=== PATIENT | female | born 1965 | race Caucasian/White ===

== ENCOUNTER 2017-06-28 00:08 | Inpatient (IN) | payer OTHER ==
[~2017-06-28] VITALS: Ht 157.5 cm; Wt 68.3 kg
[~2017-06-28 00:08] MED LIST: DOCU100 PO; FAMO20 PO; HYDACE5 PO; IBUP800 PO; LEVFLO500 PO; Naprosyn500 MG PO; OXYACE5T PO; Percocet 5-3251 EACH PO; SULTRIDS PO; Veetids 500500 MG PO
[2017-06-28 00:44] LABS: BASOPHILS ABSOLUTE AUTO 0.07 K/mm3 (0.00-0.23); BASOPHILS PERCENT AUTO 1 % (0-2); EOSINOPHILS PERCENT AUTO 0 % (0-6); Hematocrit 42.8 % (33.0-51.0); IMMATURE GRAN ABSOLUTE AUTO 0.06 K/mm3 (0.00-0.10); IMMATURE GRAN PERCENT AUTO 0 % (0-1); LYMPHOCYTES ABSOLUTE AUTO 1.53 K/mm3 (0.84-5.20); LYMPHOCYTES PERCENT AUTO 11 % (21-46); MONOCYTES ABSOLUTE AUTO 0.76 K/mm3 (0.16-1.47); MONOCYTES PERCENT AUTO 5 % (4-13); Mean Corpuscular HGB 28.9 pg (26.0-34.0); Mean Corpuscular HGB Conc 32.7 g/dL (31.5-36.5); Mean Corpuscular Volume 88 fL (80-100); Mean Platelet Volume 9.5 fL (9.1-12.4); NEUTROPHILS ABSOLUTE AUTO 11.69 K/mm3 (1.96-9.15); NEUTROPHILS PERCENT AUTO 83 % (41-73); Platelet Count 276 K/mm3 (150-400); RDW Coefficient Variation 13.9 % (11.7-14.2); Red Blood Cell Count 4.84 M/mm3 (3.80-5.20); White Blood Cell Count 14.11 K/mm3 (4.00-11.30)
[2017-06-28 00:57] LABS: Alanine Aminotransfer (ALT/SGP 41 U/L (12-78); Albumin, Blood 3.6 g/dL (3.4-5.0); Albumin/Globulin Ratio 0.9 (0.8-1.8); Alk Phos 108 U/L (50-136); Anion Gap 9 mmol/L (6-16); Aspartate Aminotrans (AST/SGOT 37 U/L (12-37); Bilirubin, Total 1.9 mg/dL (0.1-1.0); Blood Urea Nitrogen 11 mg/dL (8-24); Bun/Creatinine Ratio 14.2 (12.0-20.0); CO2, Blood 26 mmol/L (21-32); Calcium, Blood 8.9 mg/dL (8.5-10.1); Chloride, Blood 98 mmol/L (98-108); Creatinine, Blood 0.78 mg/dL (0.40-1.00); Globulin, Blood 4.1 g/dL (2.2-4.0); Glomerular Filtration Rate >60 (60-); Glucose, Blood 122 mg/dL (70-99); Sodium, Blood 133 mmol/L (136-145); Total Protein, Blood 7.7 g/dL (6.4-8.2)
[2017-06-28 05:03] LABS: BASOPHILS ABSOLUTE AUTO 0.05 K/mm3 (0.00-0.23); BASOPHILS PERCENT AUTO 1 % (0-2); EOSINOPHILS ABSOLUTE AUTO 0.01 K/mm3 (0.00-0.68); EOSINOPHILS PERCENT AUTO 0 % (0-6); Hematocrit 36.2 % (33.0-51.0); Hemoglobin 11.7 g/dL (11.5-16.0); IMMATURE GRAN ABSOLUTE AUTO 0.04 K/mm3 (0.00-0.10); IMMATURE GRAN PERCENT AUTO 0 % (0-1); LYMPHOCYTES ABSOLUTE AUTO 1.64 K/mm3 (0.84-5.20); LYMPHOCYTES PERCENT AUTO 15 % (21-46); MONOCYTES ABSOLUTE AUTO 0.69 K/mm3 (0.16-1.47); MONOCYTES PERCENT AUTO 6 % (4-13); Mean Corpuscular HGB 28.7 pg (26.0-34.0); Mean Corpuscular HGB Conc 32.3 g/dL (31.5-36.5); Mean Corpuscular Volume 89 fL (80-100); Mean Platelet Volume 9.9 fL (9.1-12.4); NEUTROPHILS ABSOLUTE AUTO 8.63 K/mm3 (1.96-9.15); NEUTROPHILS PERCENT AUTO 78 % (41-73); Platelet Count 239 K/mm3 (150-400); RDW Coefficient Variation 13.9 % (11.7-14.2); RDW Standard Deviation 45.3 fL (35.1-46.3); Red Blood Cell Count 4.08 M/mm3 (3.80-5.20); White Blood Cell Count 11.06 K/mm3 (4.00-11.30)
[2017-06-28 05:26] LABS: Alanine Aminotransfer (ALT/SGP 30 U/L (12-78); Albumin, Blood 2.6 g/dL (3.4-5.0); Albumin/Globulin Ratio 0.8 (0.8-1.8); Alk Phos 81 U/L (50-136); Anion Gap 9 mmol/L (6-16); Aspartate Aminotrans (AST/SGOT 28 U/L (12-37); Bilirubin, Total 1.4 mg/dL (0.1-1.0); Blood Urea Nitrogen 10 mg/dL (8-24); Bun/Creatinine Ratio 14.5 (12.0-20.0); CO2, Blood 26 mmol/L (21-32); Calcium, Blood 7.8 mg/dL (8.5-10.1); Chloride, Blood 104 mmol/L (98-108); Creatinine, Blood 0.69 mg/dL (0.40-1.00); Globulin, Blood 3.4 g/dL (2.2-4.0); Glomerular Filtration Rate >60 (60-); Glucose, Blood 126 mg/dL (70-99); Potassium, Blood 3.4 mmol/L (3.5-5.5); Sodium, Blood 139 mmol/L (136-145)
[2017-06-28 08:45] LABS: U Amphetamine Screen DETECTED; U Methamphetamine Screen DETECTED
[2017-06-28 08:46] LABS: U Barbituate Screen Not Detected; U Benzodiazapine Screen Not Detected; U Buprenorphine Screen Not Detected; U Cannabinoids Screen Not Detected; U Cocaine Screen Not Detected; U Methadone Screen Not Detected; U Opiates Screen Not Detected; U Oxycodone Screen DETECTED; U Phencyclidine Screen Not Detected; U Propoxyphene Screen Not Detected
[2017-06-28 11:30] LABS: Source, Urine Clean Catch
[2017-06-28 11:45] LABS: Bilirubin, Urine Neg (Neg); Blood, Urine 1+ (Neg); Glucose Qualitative, Urine Neg (Neg); Ketones, Urine Neg (Neg); Leukocyte Esterase, Urine 2+ (Neg); Nitrite, Urine Neg (Neg); Protein, Urine 1+ (Neg); Specific Gravity, Urine 1.015 (1.003-1.022); Urobilinogen, Urine NORM (Normal)
[2017-06-28 11:46] LABS: Appearance, Urine Clear (Clear); Color, Urine Yellow (P-Yellow)
[2017-06-28 11:48] LABS: Bacteria Rare /hpf; Red Blood Cells, Urine 0-2 /hpf (0-2); Squamous Epithelial Cells Few /hpf (Few)
[2017-06-29 04:55] LABS: BASOPHILS ABSOLUTE AUTO 0.05 K/mm3 (0.00-0.23); BASOPHILS PERCENT AUTO 0 % (0-2); EOSINOPHILS ABSOLUTE AUTO 0.04 K/mm3 (0.00-0.68); EOSINOPHILS PERCENT AUTO 0 % (0-6); Hematocrit 36.3 % (33.0-51.0); Hemoglobin 12.2 g/dL (11.5-16.0); IMMATURE GRAN ABSOLUTE AUTO 0.04 K/mm3 (0.00-0.10); IMMATURE GRAN PERCENT AUTO 0 % (0-1); LYMPHOCYTES ABSOLUTE AUTO 1.86 K/mm3 (0.84-5.20); LYMPHOCYTES PERCENT AUTO 16 % (21-46); MONOCYTES ABSOLUTE AUTO 0.87 K/mm3 (0.16-1.47); MONOCYTES PERCENT AUTO 8 % (4-13); Mean Corpuscular HGB 29.3 pg (26.0-34.0); Mean Corpuscular HGB Conc 33.6 g/dL (31.5-36.5); Mean Corpuscular Volume 87 fL (80-100); Mean Platelet Volume 9.8 fL (9.1-12.4); NEUTROPHILS PERCENT AUTO 75 % (41-73); Platelet Count 231 K/mm3 (150-400); RDW Coefficient Variation 14.1 % (11.7-14.2); RDW Standard Deviation 45.3 fL (35.1-46.3); Red Blood Cell Count 4.16 M/mm3 (3.80-5.20); White Blood Cell Count 11.56 K/mm3 (4.00-11.30)
[2017-06-29 05:14] LABS: Anion Gap 7 mmol/L (6-16); Blood Urea Nitrogen 8 mg/dL (8-24); Bun/Creatinine Ratio 12.9 (12.0-20.0); CO2, Blood 26 mmol/L (21-32); Calcium, Blood 8.3 mg/dL (8.5-10.1); Chloride, Blood 100 mmol/L (98-108); Creatinine, Blood 0.62 mg/dL (0.40-1.00); Glomerular Filtration Rate >60 (60-); Glucose, Blood 106 mg/dL (70-99); Potassium, Blood 3.9 mmol/L (3.5-5.5); Sodium, Blood 133 mmol/L (136-145)
[2017-06-29 15:35] LABS: Vancomycin, Trough 6.5 ug/mL (5.0-10.0)
[2017-06-30 15:33] LABS: Vancomycin, Trough 13.7 ug/mL (5.0-10.0)
[2017-07-01 04:58] LABS: BASOPHILS ABSOLUTE AUTO 0.04 K/mm3 (0.00-0.23); BASOPHILS PERCENT AUTO 1 % (0-2); EOSINOPHILS ABSOLUTE AUTO 0.28 K/mm3 (0.00-0.68); EOSINOPHILS PERCENT AUTO 3 % (0-6); Hematocrit 37.8 % (33.0-51.0); Hemoglobin 12.4 g/dL (11.5-16.0); IMMATURE GRAN ABSOLUTE AUTO 0.04 K/mm3 (0.00-0.10); IMMATURE GRAN PERCENT AUTO 1 % (0-1); LYMPHOCYTES ABSOLUTE AUTO 1.58 K/mm3 (0.84-5.20); LYMPHOCYTES PERCENT AUTO 19 % (21-46); MONOCYTES ABSOLUTE AUTO 0.85 K/mm3 (0.16-1.47); MONOCYTES PERCENT AUTO 10 % (4-13); Mean Corpuscular HGB 28.8 pg (26.0-34.0); Mean Corpuscular HGB Conc 32.8 g/dL (31.5-36.5); Mean Corpuscular Volume 88 fL (80-100); Mean Platelet Volume 9.7 fL (9.1-12.4); NEUTROPHILS ABSOLUTE AUTO 5.45 K/mm3 (1.96-9.15); NEUTROPHILS PERCENT AUTO 66 % (41-73); Platelet Count 305 K/mm3 (150-400); RDW Coefficient Variation 14.1 % (11.7-14.2); RDW Standard Deviation 45.5 fL (35.1-46.3); White Blood Cell Count 8.24 K/mm3 (4.00-11.30)
[2017-07-01 05:18] LABS: Anion Gap 8 mmol/L (6-16); Blood Urea Nitrogen 10 mg/dL (8-24); Bun/Creatinine Ratio 16.4 (12.0-20.0); CO2, Blood 28 mmol/L (21-32); Calcium, Blood 9.1 mg/dL (8.5-10.1); Chloride, Blood 103 mmol/L (98-108); Creatinine, Blood 0.61 mg/dL (0.40-1.00); Glomerular Filtration Rate >60 (60-); Glucose, Blood 100 mg/dL (70-99); Potassium, Blood 4.1 mmol/L (3.5-5.5); Sodium, Blood 139 mmol/L (136-145)
[2017-07-01] MEDS ORDERED: ACET325 PO (10:30)
[2017-07-01] MEDS ORDERED: ACIDOPHILUS LA1 EACH PO (10:31)
[2017-07-01] MEDS ORDERED: DOXY100 PO (10:31)
== END 2017-07-01 16:13 | disposition home or self-care (01) | DRG 872 ==
LOC: ER 00:08 → MEDS 00:09 → ENPENDDIS 07-01 09:51 → MEDS 07-01 16:13
PROVIDERS: Emergency Medicine; Internal Medicine
DX: A41.9 Sepsis, unspecified organism (principal); L03.116 Cellulitis of left lower limb; F17.210 Nicotine dependence, cigarettes, uncomplicated; F19.10 Other psychoactive substance abuse, uncomplicated
CPT/HCPCS: 36415; 80048; 80053; 80202; 81001; 83605; 85025; 87040; 87086; 93005; 93010; 96365; 96375; 99285; J0696; J1200; J1650; J3010; J3370; J7030

== ENCOUNTER 2018-07-17 16:16 | Inpatient (IN) | payer OTHER ==
[~2018-07-17] VITALS: Ht 157.5 cm; Wt 64.4 kg
[~2018-07-17 16:16] MED LIST changes: +ACET325 PO; +ACIDOPHILUS LA1 EACH PO; +DOXY100 PO
[2018-07-17 16:58] LABS: BASOPHILS ABSOLUTE AUTO 0.05 K/mm3 (0.00-0.23); BASOPHILS PERCENT AUTO 0 % (0-2); EOSINOPHILS ABSOLUTE AUTO 0.03 K/mm3 (0.00-0.68); EOSINOPHILS PERCENT AUTO 0 % (0-6); Hematocrit 45.8 % (33.0-51.0); Hemoglobin 14.6 g/dL (11.5-16.0); IMMATURE GRAN ABSOLUTE AUTO 0.03 K/mm3 (0.00-0.10); IMMATURE GRAN PERCENT AUTO 0 % (0-1); LYMPHOCYTES ABSOLUTE AUTO 1.26 K/mm3 (0.84-5.20); LYMPHOCYTES PERCENT AUTO 10 % (21-46); MONOCYTES ABSOLUTE AUTO 0.78 K/mm3 (0.16-1.47); MONOCYTES PERCENT AUTO 6 % (4-13); Mean Corpuscular HGB 29.4 pg (26.0-34.0); Mean Corpuscular HGB Conc 31.9 g/dL (31.5-36.5); Mean Corpuscular Volume 92 fL (80-100); Mean Platelet Volume 9.6 fL (9.1-12.4); NEUTROPHILS ABSOLUTE AUTO 10.03 K/mm3 (1.96-9.15); NEUTROPHILS PERCENT AUTO 83 % (41-73); Platelet Count 343 K/mm3 (150-400); RDW Coefficient Variation 13.4 % (11.7-14.2); RDW Standard Deviation 45.5 fL (35.1-46.3); Red Blood Cell Count 4.96 M/mm3 (3.80-5.20); White Blood Cell Count 12.18 K/mm3 (4.00-11.30)
[2018-07-17 17:19] LABS: Alanine Aminotransfer (ALT/SGP 22 U/L (12-78); Albumin, Blood 3.8 g/dL (3.4-5.0); Albumin/Globulin Ratio 0.8 (0.8-1.8); Alk Phos 121 U/L (50-136); Anion Gap 6 mmol/L (6-16); Aspartate Aminotrans (AST/SGOT 19 U/L (12-37); Bilirubin, Total 2.5 mg/dL (0.1-1.0); Blood Urea Nitrogen 11 mg/dL (8-24); Bun/Creatinine Ratio 15.5 (12.0-20.0); CO2, Blood 30 mmol/L (21-32); Calcium, Blood 9.2 mg/dL (8.5-10.1); Chloride, Blood 99 mmol/L (98-108); Creatinine, Blood 0.71 mg/dL (0.40-1.00); Globulin, Blood 4.6 g/dL (2.2-4.0); Glomerular Filtration Rate >60 (60-); Glucose, Blood 110 mg/dL (70-99); Potassium, Blood 3.4 mmol/L (3.5-5.5); Sodium, Blood 135 mmol/L (136-145); Total Protein, Blood 8.4 g/dL (6.4-8.2); Troponin I <0.015 ng/mL (0.000-0.040)
[2018-07-17 17:51] LABS: Source, Urine Clean Catch
[2018-07-17 18:02] LABS: Bilirubin, Urine Neg (Neg); Blood, Urine 5+ (Neg); Glucose Qualitative, Urine Neg (Neg); Ketones, Urine Neg (Neg); Leukocyte Esterase, Urine 3+ (Neg); Nitrite, Urine Pos (Neg); Protein, Urine 3+ (Neg); Specific Gravity, Urine 1.015 (1.003-1.022); Urobilinogen, Urine NORM (Normal)
[2018-07-17 18:20] LABS: U Amphetamine Screen DETECTED; U Barbituate Screen Not Detected; U Benzodiazapine Screen Not Detected; U Buprenorphine Screen Not Detected; U Cannabinoids Screen DETECTED; U Cocaine Screen Not Detected; U Methadone Screen Not Detected; U Methamphetamine Screen DETECTED; U Opiates Screen Not Detected; U Oxycodone Screen Not Detected; U Phencyclidine Screen Not Detected; U Propoxyphene Screen Not Detected
[2018-07-17 18:25] LABS: Appearance, Urine Hazy (Clear); Color, Urine Yellow (P-Yellow)
[2018-07-17 18:26] LABS: Bacteria Mod /hpf; Mucus Mod (0-Heavy); Squamous Epithelial Cells Few /hpf (Few); White Blood Cells, Urine 25-50 /hpf (0-5)
--- NOTE | 2018-07-18 04:44 | NUR ---
53 Y/O FEMALE RESTED COMFORTABLY IN BED ALL NIGHT. PTS DENIES PAIN OR NAUSEA. PT DENIES NEED FOR NICOTINE PATCH AT THIS TIME. PTS BED IN LOW POSITION, CALL LIGHT AT SIDE.
[2018-07-18 04:51] LABS: Hematocrit 36.6 % (33.0-51.0); Hemoglobin 11.7 g/dL (11.5-16.0); Mean Corpuscular HGB 29.6 pg (26.0-34.0); Mean Corpuscular Volume 93 fL (80-100); Mean Platelet Volume 9.8 fL (9.1-12.4); Platelet Count 252 K/mm3 (150-400); RDW Coefficient Variation 13.3 % (11.7-14.2); RDW Standard Deviation 45.9 fL (35.1-46.3); Red Blood Cell Count 3.95 M/mm3 (3.80-5.20); White Blood Cell Count 12.25 K/mm3 (4.00-11.30)
[2018-07-18 05:08] LABS: Anion Gap 5 mmol/L (6-16); Blood Urea Nitrogen 11 mg/dL (8-24); Bun/Creatinine Ratio 17.9 (12.0-20.0); CO2, Blood 27 mmol/L (21-32); Calcium, Blood 7.8 mg/dL (8.5-10.1); Chloride, Blood 107 mmol/L (98-108); Creatinine, Blood 0.62 mg/dL (0.40-1.00); Glomerular Filtration Rate >60 (60-); Glucose, Blood 125 mg/dL (70-99); Potassium, Blood 3.7 mmol/L (3.5-5.5); Sodium, Blood 139 mmol/L (136-145)
--- NOTE | 2018-07-18 05:53 | NUR ---
07/17/182099 53 Y/O FEMALE ADMITTED ROOM 305 VIA STRETCHER FROM ER.
--- NOTE | 2018-07-18 06:29 | NUR ---
DR TELLES ADVISED OF TEMP 103.1 AND THAT TYLENOL 650MG WAS GIVEN AT 0615 WITH ACKNOWLEDGEMENT NOTED. NO NEW ORDERS.
--- NOTE | 2018-07-18 08:20 | NUR ---
PATIENT TAKEN OFF MRSA PRECAUTIONS. SHE STATED SHE HAS NEVER HAD MRSA, THAT SHE HAD A SPIDER BITE WHICH WAS TREATED MRSA BUT SHE DENIES EVER HAVING BEEN TESTED FOR MRSA.
--- NOTE | 2018-07-18 18:41 | NUR ---
PATIENT HAS SLEPT MOST OF THE SHIFT. HER FEVER HAS COME DOWN AND SHE HAS HAD NO COMPLAINTS. HER DAUGHTER IN LAW WAS PRESENT AND TOLD THIS NURSE PATIENT HAS A LONG HISTORY OF METH ABUSE. PATIENT HAS APPEARED TO BE DETOXING THIS SHIFT. SHE IS INDEPENDENT IN THE ROOM AND CALLS LUCILLE.
--- NOTE | 2018-07-19 05:23 | NUR ---
SHIFT SUMMARY PT HAS HAD FEVER DURING THE NIGHT ALONG WITH CHILLS. MEDICATED WITH TYLENOL X2 SO FAR THIS SHIFT. 1 BLOOD CULTURE POSITIVE WITH GRAM NEGATIVE BACCILLI, PT COVERED WITH ANTIBIOTIC PER PHARMACY. PT STATES, HOWEVER, THAT SHE IS FEELING WORSE. WILL CONTINUE TO MONITOR AND PASS INFORMATION ALONG TO ONCOMING SHIFT.
--- NOTE | 2018-07-19 18:18 | NUR ---
PATIENT HAS BEEN RESTING MOST OF SHIFT. SHE FELT WELL ENOUGH TO GO OUT SIDE TO SMOKE AND HAVE SHOWER. SHE IS ALERT AND ORIENTED AND COMPLIANT WITH CARES. SHE HAD FEVER OF 100.6 FOR WHICH TYLENOL WAS GIVEN. NO COMPLANTS OF PAIN, N/V/D.
[2018-07-20 05:06] LABS: BASOPHILS ABSOLUTE AUTO 0.07 K/mm3 (0.00-0.23); BASOPHILS PERCENT AUTO 1 % (0-2); EOSINOPHILS ABSOLUTE AUTO 0.17 K/mm3 (0.00-0.68); EOSINOPHILS PERCENT AUTO 2 % (0-6); Hematocrit 38.3 % (33.0-51.0); Hemoglobin 12.2 g/dL (11.5-16.0); IMMATURE GRAN ABSOLUTE AUTO 0.03 K/mm3 (0.00-0.10); IMMATURE GRAN PERCENT AUTO 0 % (0-1); LYMPHOCYTES ABSOLUTE AUTO 2.17 K/mm3 (0.84-5.20); LYMPHOCYTES PERCENT AUTO 30 % (21-46); MONOCYTES ABSOLUTE AUTO 0.96 K/mm3 (0.16-1.47); MONOCYTES PERCENT AUTO 13 % (4-13); Mean Corpuscular HGB 29.5 pg (26.0-34.0); Mean Corpuscular HGB Conc 31.9 g/dL (31.5-36.5); Mean Corpuscular Volume 93 fL (80-100); Mean Platelet Volume 9.7 fL (9.1-12.4); NEUTROPHILS ABSOLUTE AUTO 3.74 K/mm3 (1.96-9.15); NEUTROPHILS PERCENT AUTO 52 % (41-73); Platelet Count 267 K/mm3 (150-400); RDW Coefficient Variation 13.3 % (11.7-14.2); RDW Standard Deviation 46.1 fL (35.1-46.3); Red Blood Cell Count 4.13 M/mm3 (3.80-5.20); White Blood Cell Count 7.14 K/mm3 (4.00-11.30)
--- NOTE | 2018-07-20 05:40 | NUR ---
SHIFT SUMMARY PT WITH FEVER AGAIN DURING THE NIGHT, 101.5. TYLENOL GIVEN. PT TEMP THIS AM DOWN TO 97.0. IVF'S INFUSING WITHOUT DIFFICULTY. SLEPT WELL CONSIDERING. WILL CONTINUE TO MONITOR.
[2018-07-20] MEDS ORDERED: TYLENOL325 MG PO (11:03)
[2018-07-20] MEDS ORDERED: NICO21TP TOP (11:04)
[2018-07-20] MEDS ORDERED: SACC250C PO (11:04)
[2018-07-20] MEDS ORDERED: CEFU500T30 PO (11:05)
--- NOTE | 2018-07-20 11:10 | NUR ---
PATIENT D/C'D TO HOME WITH DAUGHTER. RX MEDICATIONS FAXED TO [facility]. DC INSTRUCTIONS DISCUSSED WITH PATIENT AND COPY PROVIDED. PATIENT DENIES ANY FURTHER QUESTIONS OR CONCERNS.
== END 2018-07-20 11:15 | disposition home or self-care (01) | DRG 872 ==
LOC: ER 16:16 → MEDS 19:30 → ENPENDDIS 07-20 10:52 → MEDS 07-20 11:15
PROVIDERS: Internal Medicine; Nurse Practitioner Acute Care; Physician Assistant; ADMIT Internal Medicine
DX: A41.51 Sepsis due to Escherichia coli [E. coli] (principal); N10 Acute pyelonephritis; R65.20 Severe sepsis without septic shock; F17.210 Nicotine dependence, cigarettes, uncomplicated; F19.10 Other psychoactive substance abuse, uncomplicated; J44.9 Chronic obstructive pulmonary disease, unspecified; I72.8 Aneurysm of other specified arteries
CPT/HCPCS: 36415; 51798; 71046; 74177; 80048; 80053; 81001; 82947; 83605; 84484; 85025; 85027; 87040; 87077; 87081; 87086; 87186; 93005; 93010; 96361; 96374; 96375; 99285-25; J0696; J1885; J3480; J7030; J7120; Q9967

== ENCOUNTER 2018-08-17 11:35 | Day surgery (SDC) | payer OTHER ==
[~2018-08-17] VITALS: Ht 135 cm; Wt 57.3 kg
[~2018-08-17 11:35] MED LIST changes: +BUPR100 PO; +CEFU500T30 PO; +CYCL10 PO; +GABA300 PO; +IBU800 MG PO; +NICO21TP TOP; +SACC250C PO; +TRAM50 PO; +TYLENOL325 MG PO; +VOLTAREN100 GM TOP
--- NOTE | 2018-08-17 14:29 | NUR ---
"DAY SURGERY RN | HANDOFF TO SANDRA EMERSON. 2 MG OF VERSED HANDED OVER TO SANDRA EMERSON."
== END 2018-08-17 22:42 | disposition home or self-care (01) ==
LOC: ORSCMMR 11:35
PROVIDERS: Orthopaedic Surgery
PROC: 01N50ZZ Release Median Nerve, Open Approach (ICD-10-PCS; principal; 2018-08-17 12:30)
PROC: 0PSJ04Z Reposition Left Radius with Internal Fixation Device, Open Approach (ICD-10-PCS; principal; 2018-08-17 12:30)
DX: S52.502A Unspecified fracture of the lower end of left radius, initial encounter for closed fracture (principal); S52.602A Unspecified fracture of lower end of left ulna, initial encounter for closed fracture; G56.02 Carpal tunnel syndrome, left upper limb; I10 Essential (primary) hypertension; Z79.899 Other long term (current) drug therapy; F17.210 Nicotine dependence, cigarettes, uncomplicated
CPT/HCPCS: C1713; J0360; J0690; J1100; J1885; J2250; J2405; J2704; J2710; J3010; J7120

== ENCOUNTER 2020-09-12 21:26 | Emergency (ER) | payer OTHER ==
[~2020-09-12] VITALS: Ht 157.5 cm; Wt 65.8 kg
[2020-09-12 22:36] LABS: Hematocrit 38.2 % (33.0-51.0); Hemoglobin 12.6 g/dL (11.5-16.0); Mean Corpuscular HGB 28.7 pg (26.0-34.0); Mean Corpuscular Volume 87 fL (80-100); Mean Platelet Volume 9.8 fL (9.1-12.4); Platelet Count 290 K/mm3 (150-400); RDW Coefficient Variation 14.2 % (11.7-14.2); RDW Standard Deviation 45.6 fL (35.1-46.3); Red Blood Cell Count 4.39 M/mm3 (3.80-5.20); White Blood Cell Count 11.22 K/mm3 (4.00-11.30)
[2020-09-12 22:55] LABS: Alanine Aminotransfer (ALT/SGP 70 U/L (12-78); Albumin, Blood 3.1 g/dL (3.4-5.0); Albumin/Globulin Ratio 0.7 (0.8-1.8); Alk Phos 144 U/L (50-136); Anion Gap 3 mmol/L (6-16); Aspartate Aminotrans (AST/SGOT 52 U/L (12-37); Bilirubin, Total 0.7 mg/dL (0.1-1.0); Blood Urea Nitrogen 16 mg/dL (8-24); Bun/Creatinine Ratio 22.3 (12.0-20.0); CO2, Blood 31 mmol/L (21-32); Calcium, Blood 8.9 mg/dL (8.5-10.1); Chloride, Blood 101 mmol/L (98-108); Creatinine, Blood 0.72 mg/dL (0.40-1.00); Globulin, Blood 4.3 g/dL (2.2-4.0); Glomerular Filtration Rate >60 (60-); Glucose, Blood 83 mg/dL (70-99); Potassium, Blood 3.7 mmol/L (3.5-5.5); Sodium, Blood 135 mmol/L (136-145); Total Protein, Blood 7.4 g/dL (6.4-8.2)
[2020-09-12 22:59] LABS: BAND PERCENT MAN 12 % (0-8); BASOPHILS PERCENT MAN 0 % (0-2); EOSINOPHILS ABSOLUTE MAN 0.11 K/mm3 (0.00-0.68); EOSINOPHILS PERCENT MAN 1 % (0-6); LYMPHOCYTES ABSOLUTE MAN 2.24 K/mm3 (0.84-5.20); LYMPHOCYTES PERCENT MAN 20 % (21-46); MONOCYTES ABSOLUTE MAN 0.67 K/mm3 (0.16-1.47); MONOCYTES PERCENT MAN 6 % (4-13); NEUTROPHILS ABSOLUTE MAN 8.19 K/mm3 (1.96-9.15); SEG NEUTROPHILS PERCENT MAN 61 % (41-73); TOTAL CELLS COUNTED 100
[2020-09-12] MEDS ORDERED: Keflex500 MG PO (23:18)
[2020-09-12] MEDS ORDERED: Bactrim Ds Tab1 EACH PO (23:18)
== END 2020-09-12 23:36 | disposition home or self-care (01) ==
LOC: ER 21:26
PROVIDERS: Physician Assistant
DX: L03.116 Cellulitis of left lower limb (principal); F17.200 Nicotine dependence, unspecified, uncomplicated
CPT/HCPCS: 36415; 80053; 83605; 85025; 87040; 93005; 93010; 99283-25; A9270

== ENCOUNTER 2022-04-17 17:21 | Inpatient (IN) | payer OTHER ==
[~2022-04-17] VITALS: Ht 157.5 cm; Wt 60.2 kg
[~2022-04-17 17:21] MED LIST changes: +Bactrim Ds Tab1 EACH PO; +Keflex500 MG PO
[2022-04-17 18:02] LABS: Hematocrit 40.8 % (33.0-51.0); Hemoglobin 13.8 g/dL (11.5-16.0); Mean Corpuscular HGB Conc 33.8 g/dL (31.5-36.5); Mean Corpuscular Volume 86 fL (80-100); Mean Platelet Volume 9.3 fL (9.1-12.4); Platelet Count 338 K/mm3 (150-400); RDW Coefficient Variation 13.9 % (11.7-14.2); RDW Standard Deviation 44.1 fL (35.1-46.3); Red Blood Cell Count 4.76 M/mm3 (3.80-5.20); White Blood Cell Count 25.51 K/mm3 (4.00-11.30)
[2022-04-17 18:29] LABS: Albumin, Blood 3.1 g/dL (3.4-5.0); Albumin/Globulin Ratio 0.7 (0.8-1.8); Bun/Creatinine Ratio 13.9 (12.0-20.0); Calcium, Blood 8.7 mg/dL (8.5-10.1); Creatinine, Blood 1.01 mg/dL (0.40-1.00); Globulin, Blood 4.2 g/dL (2.2-4.0); Potassium, Blood 3.6 mmol/L (3.5-5.5); Total Protein, Blood 7.3 g/dL (6.4-8.2)
[2022-04-17 18:30] LABS: BAND PERCENT MAN 7 % (0-8); BASOPHILS PERCENT MAN 0 % (0-2); EOSINOPHILS PERCENT MAN 0 % (0-6); LYMPHOCYTES ABSOLUTE MAN 2.04 K/mm3 (0.84-5.20); LYMPHOCYTES PERCENT MAN 8 % (21-46); MONOCYTES ABSOLUTE MAN 0.51 K/mm3 (0.16-1.47); MONOCYTES PERCENT MAN 2 % (4-13); NEUTROPHILS ABSOLUTE MAN 22.95 K/mm3 (1.96-9.15); SEG NEUTROPHILS PERCENT MAN 83 % (41-73); TOTAL CELLS COUNTED 100
[2022-04-17 19:10] LABS: Influenza A, PCR NEGATIVE (NEGATIVE); Influenza B, PCR NEGATIVE (NEGATIVE); Resp Syncytial Virus, PCR NEGATIVE (NEGATIVE); SARS-Cov-2 (COVID-19) PCR, MMC NEGATIVE (NEGATIVE)
--- NOTE | 2022-04-18 04:52 | NUR ---
PT IS A&O4, INDEPENDENT OF ADL'S, RESTED COMFORTABLY OVERNGIHT, NO COMPLAINTS OF PAIN, IV FLUIDS INFUSING, NO ACUTE OVERNIGHT EVENTS
[2022-04-18 04:59] LABS: BASOPHILS PERCENT AUTO 1 % (0-2); EOSINOPHILS ABSOLUTE AUTO 0.02 K/mm3 (0.00-0.68); EOSINOPHILS PERCENT AUTO 0 % (0-6); Hematocrit 35.7 % (33.0-51.0); Hemoglobin 11.9 g/dL (11.5-16.0); IMMATURE GRAN ABSOLUTE AUTO 0.11 K/mm3 (0.00-0.10); IMMATURE GRAN PERCENT AUTO 1 % (0-1); LYMPHOCYTES ABSOLUTE AUTO 1.45 K/mm3 (0.84-5.20); LYMPHOCYTES PERCENT AUTO 8 % (21-46); MONOCYTES ABSOLUTE AUTO 0.86 K/mm3 (0.16-1.47); MONOCYTES PERCENT AUTO 5 % (4-13); Mean Corpuscular HGB 28.6 pg (26.0-34.0); Mean Corpuscular HGB Conc 33.3 g/dL (31.5-36.5); Mean Corpuscular Volume 86 fL (80-100); Mean Platelet Volume 9.5 fL (9.1-12.4); NEUTROPHILS ABSOLUTE AUTO 15.61 K/mm3 (1.96-9.15); NEUTROPHILS PERCENT AUTO 86 % (41-73); Platelet Count 278 K/mm3 (150-400); RDW Coefficient Variation 14.2 % (11.7-14.2); RDW Standard Deviation 45.2 fL (35.1-46.3); Red Blood Cell Count 4.16 M/mm3 (3.80-5.20); White Blood Cell Count 18.15 K/mm3 (4.00-11.30)
[2022-04-18 05:51] LABS: Albumin, Blood 2.6 g/dL (3.4-5.0); Albumin/Globulin Ratio 0.7 (0.8-1.8); Bilirubin, Total 1.4 mg/dL (0.1-1.0); Bun/Creatinine Ratio 19.7 (12.0-20.0); Calcium, Blood 8.4 mg/dL (8.5-10.1); Creatinine, Blood 0.66 mg/dL (0.40-1.00); Globulin, Blood 3.6 g/dL (2.2-4.0); Potassium, Blood 3.5 mmol/L (3.5-5.5); Total Protein, Blood 6.2 g/dL (6.4-8.2)
[2022-04-18 13:15] LABS: Source, Urine Voided
[2022-04-18 13:36] LABS: Appearance, Urine Hazy (Clear); Bilirubin, Urine Neg (Neg); Blood, Urine Neg (Neg); Color, Urine Yellow (P-Yellow); Glucose Qualitative, Urine Neg (Neg); Ketones, Urine Neg (Neg); Leukocyte Esterase, Urine 3+ (Neg); Nitrite, Urine Neg (Neg); Protein, Urine 2+ (Neg); Specific Gravity, Urine 1.015 (1.003-1.022); Urobilinogen, Urine NORM (Normal)
[2022-04-18 13:49] LABS: Bacteria Mod /hpf; Red Blood Cells, Urine 0-2 /hpf (0-2); Squamous Epithelial Cells Few /hpf (Few)
[2022-04-18 13:50] LABS: Calcium Oxalate Crystals Few /hpf
[2022-04-18 14:14] LABS: U Amphetamine Screen DETECTED; U Barbituate Screen Not Detected; U Benzodiazapine Screen Not Detected; U Buprenorphine Screen Not Detected; U Cannabinoids Screen Not Detected; U Cocaine Screen Not Detected; U Methadone Screen Not Detected; U Methamphetamine Screen DETECTED; U Opiates Screen Not Detected; U Oxycodone Screen Not Detected; U Phencyclidine Screen Not Detected; U Propoxyphene Screen Not Detected
--- NOTE | 2022-04-18 19:27 | NUR ---
SHIFT SUMMARY: PT A&O X4, PLEASANT, AND COMMUNICATES WELL WITH STAFF. PT HAVING MILD PAIN IN HER LLE, REDDNESS, WEEPING AND TENDERNESS. PT MEDICATED PER EMAR PROTOCOL, ON REASSESSMENT PT HAD DECREASED PAIN. PT INFUSING NS 75ML/HR AND TOLERATING WELL. PT AMBULATED TO THE SHOWER SBA AND SET UP FOR BATHING. PT HAD FAMILY AND FRIENDS AT BEDSIDE DURING THE SHIFT. PT URINE SAMPLE COLLECTED AND RESULTS ARE AVAIALABLE. PT IN BED WITH CALL LIGHT WITHIN REACH.
--- NOTE | 2022-04-19 05:12 | NUR ---
SUMMARY: PATIENT AOX4. REPORTED AN EPISODE OF DIZZINESS. CHECKED PATIENT VITALS EVERYTHING WAS STABLE BUT SHE DID HAVE A FEVER. MEDICATED WITH TYLENOL. PATIENT STATED DIZZINESS IMPROVED. PATIENT REPORTED HAVING NUMBNESS AND TINGLING IN HER LEGS AND FEET SO SHE WENT FOR A WALK AROUND UNIT. IV ABX GIVEN. REDNESS NOTED ON LEG WITHIN MARKED MARGIN LINES. NO ACUTE EVENTS OTHERWISE. TELE IN PLACE. CALL LIGHT IN REACH.
[2022-04-19 05:53] LABS: BASOPHILS ABSOLUTE AUTO 0.05 K/mm3 (0.00-0.23); BASOPHILS PERCENT AUTO 1 % (0-2); EOSINOPHILS PERCENT AUTO 1 % (0-6); Hematocrit 32.5 % (33.0-51.0); Hemoglobin 10.9 g/dL (11.5-16.0); IMMATURE GRAN ABSOLUTE AUTO 0.09 K/mm3 (0.00-0.10); IMMATURE GRAN PERCENT AUTO 1 % (0-1); LYMPHOCYTES ABSOLUTE AUTO 1.55 K/mm3 (0.84-5.20); LYMPHOCYTES PERCENT AUTO 16 % (21-46); MONOCYTES ABSOLUTE AUTO 0.73 K/mm3 (0.16-1.47); MONOCYTES PERCENT AUTO 8 % (4-13); Mean Corpuscular HGB Conc 33.5 g/dL (31.5-36.5); Mean Corpuscular Volume 86 fL (80-100); Mean Platelet Volume 9.8 fL (9.1-12.4); NEUTROPHILS ABSOLUTE AUTO 7.15 K/mm3 (1.96-9.15); NEUTROPHILS PERCENT AUTO 74 % (41-73); Platelet Count 271 K/mm3 (150-400); RDW Coefficient Variation 14.4 % (11.7-14.2); RDW Standard Deviation 45.5 fL (35.1-46.3); Red Blood Cell Count 3.76 M/mm3 (3.80-5.20); White Blood Cell Count 9.67 K/mm3 (4.00-11.30)
[2022-04-19 07:16] LABS: Anion Gap 7 mmol/L (6-16); Blood Urea Nitrogen 9 mg/dL (8-24); Bun/Creatinine Ratio 16.4 (12.0-20.0); CO2, Blood 24 mmol/L (21-32); Calcium, Blood 8.3 mg/dL (8.5-10.1); Chloride, Blood 109 mmol/L (98-108); Creatinine, Blood 0.55 mg/dL (0.40-1.00); Glomerular Filtration Rate 108 (60-); Glucose, Blood 103 mg/dL (70-99); Potassium, Blood 3.6 mmol/L (3.5-5.5); Sodium, Blood 140 mmol/L (136-145); Vancomycin, Trough 9.2 ug/mL (5.0-10.0)
--- NOTE | 2022-04-19 18:30 | NUR ---
SHIFT SUMMARY A&0X4, COOPERATIVE WITH CARE. PT DID NOT CALL DURIN THIS SHIFT. INDEPENDENT. PT RECEIVED ANCEF TWICE AND VANCO 1X WITH ANOTHER DOSE SCHEDULED FOR 2099. CELLULITIS TO LLE HAS SHOWN A LITTLE PROGRESS. SCANT AMOUNT OF WEEPING DRAINAGE NOTED T/O THE DAY. CONTINUES TO BE HOT TO TOUCH. PT HAD LOW GRADE FEVERS T/O THE DAY, HIGHEST BEING 101.1, TREATED WITH TYLENOL PER ORDERS. PT COMPLAINED OF 4/10 PAIN TO BODY ACHE/HEADACHE THAT SUBSIDED WITH THE TYLENOL. PT DENEIES SOB, DIZZINESS OR CHEST PAIN. TELEMETRY SHOWED SR/ST IN THE UPPER 90'S AND LOW 100'S T/O SHIFT. TLAANG DISCUSSED DISCHARGE FOR TOMORROW WITH PATIENT. PT CURRENTLY RESTING COMFORTABLY IN BED WITH CALL LIGHT IN REACH.
--- NOTE | 2022-04-20 03:53 | NUR ---
SHIFT SUMMARY ADMITTED FOR SEPSIS/CELLULITIS OF LLE. FULL CODE. HOPEFUL FOR DC HOME TODAY. SHE IS A&O X4, REGULAR DIET, ON RA. TELEMETRY: NSR @ 90 BPM. INDEPENDENT IN ROOM. IV ANTIB RX ARE SCHEDULED. NO NEW CONCERNS THIS SHIFT.
[2022-04-20] MEDS ORDERED: Acetaminophen325 M1 PO (12:25)
[2022-04-20] MEDS ORDERED: CEPH500 PO (12:26)
[2022-04-20] MEDS ORDERED: LACT PO (12:26)
--- NOTE | 2022-04-20 12:41 | NUR ---
DISCHARGE A&0X4, COOPERATIVE WITH CARE. PT CONTINUES TO HAVE CELLULITIS OF LLE. REDNESS, EDEMA, AND OUTLINED. COMPLAINED OF 2-3/10 PAIN TO HEAD ACHE AND LLE, NO PAIN MEDICATION GIVEN. DENIED ANY SOB OR CHEST PAIN. IV AND TELE REMOVED. LAST TELE READING WAS ST AT 100 VIA FND. PATIENT AMBULATES WELL AND DENIES ANY DIZZINESS. NO ACUTE CHANGES THIS SHIFT. PLAN TO CONTINUE PO ANTIBIOTICS AT HOME. PATIENT IS CURRENTLY GETTING READY TO LEAVE. RIDE IS ON THE WAY.
== END 2022-04-20 13:01 | disposition home or self-care (01) | DRG 872 ==
LOC: ER 17:21 → MEDS 20:29
PROVIDERS: Physician Assistant; Student in an Organized Health Care Education/Training Program; ADMIT Internal Medicine
DX: A41.9 Sepsis, unspecified organism (principal); L03.116 Cellulitis of left lower limb; R65.20 Severe sepsis without septic shock; F15.10 Other stimulant abuse, uncomplicated; F17.210 Nicotine dependence, cigarettes, uncomplicated; F12.10 Cannabis abuse, uncomplicated; I95.9 Hypotension, unspecified; M48.00 Spinal stenosis, site unspecified; N73.9 Female pelvic inflammatory disease, unspecified; Z20.822 Contact with and (suspected) exposure to COVID-19; Z90.710 Acquired absence of both cervix and uterus; Z98.890 Other specified postprocedural states; Z85.43 Personal history of malignant neoplasm of ovary; Z86.79 Personal history of other diseases of the circulatory system
CPT/HCPCS: 0241U; 36415; 71046; 73701; 80048; 80053; 80202; 81001; 83605; 83880; 85025; 86140; 96365-59; 96366-59; 96375-59; 99285-25; A9270; J0690; J1650; J2405; J3370; J7030; J7050; Q9967

== ENCOUNTER 2023-03-23 17:42 | Emergency (ER) | payer OTHER ==
[~2023-03-23] VITALS: Ht 154.9 cm; Wt 59.4 kg
[~2023-03-23 17:42] MED LIST changes: +Acetaminophen325 M1 PO; +CEPH500 PO; +LACT PO
[2023-03-23 18:20] LABS: BASOPHILS ABSOLUTE AUTO 0.08 K/mm3 (0.00-0.23); BASOPHILS PERCENT AUTO 1 % (0-2); EOSINOPHILS ABSOLUTE AUTO 0.17 K/mm3 (0.00-0.68); EOSINOPHILS PERCENT AUTO 2 % (0-6); Hematocrit 41.7 % (33.0-51.0); Hemoglobin 13.6 g/dL (11.5-16.0); IMMATURE GRAN ABSOLUTE AUTO 0.02 K/mm3 (0.00-0.10); IMMATURE GRAN PERCENT AUTO 0 % (0-1); LYMPHOCYTES ABSOLUTE AUTO 2.91 K/mm3 (0.84-5.20); LYMPHOCYTES PERCENT AUTO 30 % (21-46); MONOCYTES ABSOLUTE AUTO 0.93 K/mm3 (0.16-1.47); MONOCYTES PERCENT AUTO 10 % (4-13); Mean Corpuscular HGB 28.9 pg (26.0-34.0); Mean Corpuscular HGB Conc 32.6 g/dL (31.5-36.5); Mean Corpuscular Volume 89 fL (80-100); Mean Platelet Volume 9.2 fL (9.1-12.4); NEUTROPHILS ABSOLUTE AUTO 5.52 K/mm3 (1.96-9.15); NEUTROPHILS PERCENT AUTO 57 % (41-73); Platelet Count 342 K/mm3 (150-400); RDW Coefficient Variation 13.8 % (11.7-14.2); RDW Standard Deviation 44.9 fL (35.1-46.3); Red Blood Cell Count 4.71 M/mm3 (3.80-5.20); White Blood Cell Count 9.63 K/mm3 (4.00-11.30)
[2023-03-23 18:42] LABS: Albumin, Blood 3.5 g/dL (3.4-5.0); Albumin/Globulin Ratio 0.9 (0.8-1.8); Bilirubin, Total 0.8 mg/dL (0.1-1.0); Bun/Creatinine Ratio 23.3 (12.0-20.0); Calcium, Blood 8.6 mg/dL (8.5-10.1); Creatinine, Blood 0.69 mg/dL (0.40-1.00); Globulin, Blood 3.9 g/dL (2.2-4.0); Potassium, Blood 3.7 mmol/L (3.5-5.5); Total Protein, Blood 7.4 g/dL (6.4-8.2)
[2023-03-23 20:35] VITALS: BP 143/86
== END 2023-03-23 20:34 | disposition home or self-care (01) ==
LOC: ER 17:42
PROVIDERS: Physician Assistant
DX: R10.9 Unspecified abdominal pain (principal); I72.8 Aneurysm of other specified arteries; F17.200 Nicotine dependence, unspecified, uncomplicated; Z79.899 Other long term (current) drug therapy
CPT/HCPCS: 74177; 80053; 85025; 99284-25; Q9967

== ENCOUNTER 2023-04-06 20:33 | Inpatient (IN) | payer OTHER ==
[~2023-04-06] VITALS: Ht 157.5 cm; Wt 59.0 kg
[2023-04-06 21:55] LABS: BASOPHILS ABSOLUTE AUTO 0.08 K/mm3 (0.00-0.23); BASOPHILS PERCENT AUTO 0 % (0-2); EOSINOPHILS ABSOLUTE AUTO 0.03 K/mm3 (0.00-0.68); EOSINOPHILS PERCENT AUTO 0 % (0-6); Hematocrit 42.6 % (33.0-51.0); Hemoglobin 14.3 g/dL (11.5-16.0); IMMATURE GRAN ABSOLUTE AUTO 0.15 K/mm3 (0.00-0.10); IMMATURE GRAN PERCENT AUTO 1 % (0-1); LYMPHOCYTES ABSOLUTE AUTO 1.29 K/mm3 (0.84-5.20); LYMPHOCYTES PERCENT AUTO 5 % (21-46); MONOCYTES ABSOLUTE AUTO 0.58 K/mm3 (0.16-1.47); MONOCYTES PERCENT AUTO 2 % (4-13); Mean Corpuscular HGB 28.7 pg (26.0-34.0); Mean Corpuscular HGB Conc 33.6 g/dL (31.5-36.5); Mean Corpuscular Volume 85 fL (80-100); Mean Platelet Volume 9.3 fL (9.1-12.4); NEUTROPHILS ABSOLUTE AUTO 23.44 K/mm3 (1.96-9.15); NEUTROPHILS PERCENT AUTO 92 % (41-73); Platelet Count 373 K/mm3 (150-400); RDW Coefficient Variation 13.8 % (11.7-14.2); RDW Standard Deviation 43.2 fL (35.1-46.3); Red Blood Cell Count 4.99 M/mm3 (3.80-5.20); White Blood Cell Count 25.57 K/mm3 (4.00-11.30)
[2023-04-06 22:12] LABS: Albumin, Blood 3.6 g/dL (3.4-5.0); Albumin/Globulin Ratio 0.8 (0.8-1.8); Bilirubin, Total 1.7 mg/dL (0.1-1.0); Bun/Creatinine Ratio 13.5 (12.0-20.0); Calcium, Blood 9.5 mg/dL (8.5-10.1); Creatinine, Blood 0.89 mg/dL (0.40-1.00); Globulin, Blood 4.7 g/dL (2.2-4.0); Potassium, Blood 3.3 mmol/L (3.5-5.5); Total Protein, Blood 8.3 g/dL (6.4-8.2)
[2023-04-07 00:10] LABS: Source, Urine Straight Cath
[2023-04-07 00:23] LABS: Bilirubin, Urine Neg (Neg); Blood, Urine 3+ (Neg); Glucose Qualitative, Urine Neg (Neg); Ketones, Urine Neg (Neg); Leukocyte Esterase, Urine 3+ (Neg); Nitrite, Urine Neg (Neg); Protein, Urine 3+ (Neg); Specific Gravity, Urine 1.015 (1.003-1.022); Urobilinogen, Urine NORM (Normal)
[2023-04-07 00:37] LABS: Appearance, Urine Turbid (Clear); Color, Urine Yellow (P-Yellow)
[2023-04-07 00:39] LABS: Bacteria Many /hpf; Squamous Epithelial Cells Few /hpf (Few); White Blood Cells, Urine TNTC /hpf (0-5)
[2023-04-07 02:00] VITALS: BP 126/69
--- NOTE | 2023-04-07 04:07 | NUR ---
SHIFT SUMMARY TISH ARRIVED FROM THE ED @ 0155, SHE WAS ALERT AND FULLY ORIENTED AND ABLE TO AMBULATE INDEPENDENTLY TO THE BED. ADMISSION COMPLETED. PT ADMITTED FOR SEPSIS UTI, AND CELLULITIS OF THE LLE. BORDERS AROUND CELLULITIS MARKED IN ED, NO SPREADING NOTED THIS SHIFT. SKIN IS OTHERWISE INTACT. NO ACUTE EVENTS AFTER ARRIVAL, NO NOTED CHANGES IN CONDITION. VSS IMPROVED FROM ED. PT RESTING IN BED AT A LOW POSITION WITH THE CALL LIGHT IN REACH WHICH SHE CAN USE APPROPRIATELY.
[2023-04-07 05:34] LABS: U Amphetamine Screen DETECTED; U Barbituate Screen Not Detected; U Benzodiazapine Screen Not Detected; U Buprenorphine Screen Not Detected; U Cannabinoids Screen Not Detected; U Cocaine Screen Not Detected; U Methadone Screen Not Detected; U Methamphetamine Screen DETECTED; U Opiates Screen Not Detected; U Oxycodone Screen Not Detected; U Phencyclidine Screen Not Detected
[2023-04-07 05:49] LABS: BASOPHILS ABSOLUTE AUTO 0.08 K/mm3 (0.00-0.23); BASOPHILS PERCENT AUTO 0 % (0-2); EOSINOPHILS PERCENT AUTO 0 % (0-6); Hematocrit 35.5 % (33.0-51.0); Hemoglobin 11.9 g/dL (11.5-16.0); IMMATURE GRAN ABSOLUTE AUTO 0.14 K/mm3 (0.00-0.10); IMMATURE GRAN PERCENT AUTO 1 % (0-1); LYMPHOCYTES ABSOLUTE AUTO 2.16 K/mm3 (0.84-5.20); LYMPHOCYTES PERCENT AUTO 11 % (21-46); MONOCYTES ABSOLUTE AUTO 0.65 K/mm3 (0.16-1.47); MONOCYTES PERCENT AUTO 3 % (4-13); Mean Corpuscular HGB 28.7 pg (26.0-34.0); Mean Corpuscular HGB Conc 33.5 g/dL (31.5-36.5); Mean Corpuscular Volume 86 fL (80-100); Mean Platelet Volume 9.2 fL (9.1-12.4); NEUTROPHILS ABSOLUTE AUTO 16.26 K/mm3 (1.96-9.15); NEUTROPHILS PERCENT AUTO 84 % (41-73); Platelet Count 278 K/mm3 (150-400); RDW Coefficient Variation 13.8 % (11.7-14.2); RDW Standard Deviation 43.5 fL (35.1-46.3); Red Blood Cell Count 4.14 M/mm3 (3.80-5.20); White Blood Cell Count 19.29 K/mm3 (4.00-11.30)
[2023-04-07 06:18] LABS: Albumin, Blood 2.5 g/dL (3.4-5.0); Albumin/Globulin Ratio 0.7 (0.8-1.8); Bilirubin, Total 1.2 mg/dL (0.1-1.0); Bun/Creatinine Ratio 19.4 (12.0-20.0); Calcium, Blood 8.2 mg/dL (8.5-10.1); Creatinine, Blood 0.77 mg/dL (0.40-1.00); Globulin, Blood 3.6 g/dL (2.2-4.0); Potassium, Blood 3.6 mmol/L (3.5-5.5)
[2023-04-07 06:19] LABS: Total Protein, Blood 6.1 g/dL (6.4-8.2)
[2023-04-07 07:33] VITALS: BP 130/75
[2023-04-07 16:17] VITALS: BP 126/73
--- NOTE | 2023-04-07 19:19 | NUR ---
NO ACUTE CHANGES THIS SHIFT. TREATED FEVER WITH TYLENOL X2. ABLE TO MAKE NEEDS KNOWN, INDEPENDENT IN ROOM REDNESS ON LLE APPEARS TO BE RECEEDING. DENIES C/P OR PRESSURE. NO BM FOR 2-3 DAYS. PT STATES NOT NORMAL FOR HER. BOWEL CARE STARTED TODAY. ALERT AND ORIENTED X4, R/A
[2023-04-07 20:42] VITALS: BP 129/72
--- NOTE | 2023-04-08 05:06 | NUR ---
SHIFT SUMMARY TISH IS ALERT AND FULLY ORIENTED THIS SHIFT. PT HAS NO COMPLAINTS, AND IS INDEPENDENT IN THE ROOM. PT STATES THAT NOTHING HAS CHANGED FROM PREVIOUS SHIFT EXCEPT THAT HER SYMPTOMS ALL FEEL SLIGHTLY IMPROVED FROM YESTERDAY. CELLULITIS TO LEG IS STILL WITHIN MARKED BORDERES FROM ED. PT DENIES NEED FOR PAIN MEDS. PT RESTING IN BED AT A LOW POSITION WITH CALL LIGHT IN REACH.
[2023-04-08 05:13] VITALS: BP 115/58
[2023-04-08 07:13] VITALS: BP 133/79
[2023-04-08 16:11] VITALS: BP 111/67
--- NOTE | 2023-04-08 16:22 | NUR ---
NO CHANGES THIS SHIFT. PT SLEPT FOR MOST OF THE SHIFT. ALERT AND ORIENTED X4. REPORTS FEELING WORSE TODAY THAN YESTERDAY. AFEBRILE THIS SHIFT. ABLE TO MAKE NEEDS KNOWN. INDEPENDENT IN THE ROOM. IV ANTIBIOTICS.
[2023-04-08 20:16] VITALS: BP 114/69
--- NOTE | 2023-04-09 04:50 | NUR ---
SHIFT SUMMARY MS SERVIN HAD A FEVER OF 102.2 LAST EVENING, 98.5 POST TYLENOL. LEFT LEG REDNESS AT LOWER LEG AND INNER LEFT THIGH TENDER. ON TELEMETRY SR, NO CALLS FROM [facility]. ON CONTACT ISOLATION FOR MRSA. UP INDEPENDENTLY TO THE BATHROOM, SHE SAID THE PAIN ON URINATION HAS DECREASED A LOT. BED LOW, CALL LIGHT IN REACH.
[2023-04-09 04:53] VITALS: BP 149/81
[2023-04-09 05:45] LABS: Hematocrit 36.2 % (33.0-51.0); Hemoglobin 12.2 g/dL (11.5-16.0); Mean Corpuscular HGB 28.4 pg (26.0-34.0); Mean Corpuscular HGB Conc 33.7 g/dL (31.5-36.5); Mean Corpuscular Volume 84 fL (80-100); Mean Platelet Volume 9.7 fL (9.1-12.4); Platelet Count 290 K/mm3 (150-400); RDW Coefficient Variation 14.3 % (11.7-14.2); RDW Standard Deviation 43.7 fL (35.1-46.3); White Blood Cell Count 8.33 K/mm3 (4.00-11.30)
[2023-04-09 06:11] LABS: Bun/Creatinine Ratio 20.6 (12.0-20.0); Calcium, Blood 8.9 mg/dL (8.5-10.1); Creatinine, Blood 0.53 mg/dL (0.40-1.00); Potassium, Blood 3.7 mmol/L (3.5-5.5)
[2023-04-09 07:36] VITALS: BP 138/79
--- NOTE | 2023-04-09 08:00 | NUR ---
Pt laying in bed awake a/ox4, pleasant and cooperative with care, follows commmands well, denies pain at this time, states her leg redness is spreading, outlined lateral side of left lower ext, and some pink noted on upper thigh, lungs are clear t/o, resp even and unlabored, no cough noted, on r/a, hrr, tele in place running sr per monitor, see strip, no edema noted, ppp+2, cap refill <3 sec, vs stable, afebrile, piv site to rfa site is clear and patent, btx4, abd flat soft nontender, voids without diff, skin c/w/d, except as noted above, miguel ángel grarido call light in reach.
[2023-04-09 14:16] VITALS: BP 111/72
--- NOTE | 2023-04-09 18:05 | NUR ---
pt sitting up eating dinner, left leg looks less red than this am, the area at the top of the thigh is less pink, pt had an uneventful day, no acute changes this shift. call light in reach.
[2023-04-09 19:23] VITALS: BP 118/71
[2023-04-10 03:10] VITALS: BP 131/68
--- NOTE | 2023-04-10 06:05 | NUR ---
SHIFT SUMMARY MS SERVIN HAS RESTED AND HAD AN UNEVENTFUL NIGHT. ON TELEMETRY IN SR, NO CALLS FROM [employer] [employer]. LEFT LEG TENDER BUT SHE HAS NOT WANTED PAIN MEDICATIONS. UP INDEPENDENTLY WALKING IN HALLWAYS LAST EVENING. BED LOW, CALL LIGHT IN REACH.
[2023-04-10 07:00] VITALS: BP 126/79
--- NOTE | 2023-04-10 09:00 | NUR ---
pt laying in bed with eyes closed, wakes easily, states her night was ok, lungs are clear t/o, resp even and unlabored, no cough noted, hrr, tele in place running sr per monitor, see strip, no edema noted, ppp faint, cap refill <3 sec, vs stable, afebrile, piv to rfa site is clear and patent, btx4, abd flat soft nontender, voids without diff, skin has red left lower ext, is slightly less red than yesterday, less swelling, and pt reports it's feeling some better, radhika, up ad corby, miguel ángel, call light in reach.
--- NOTE | 2023-04-10 16:11 | NUR ---
Pt has slept most of the day, awake now, no complaints, she states she used to work nights so it's habit, no needs at this time besides a snack, call light in reach.
[2023-04-10 16:26] VITALS: BP 119/67
--- NOTE | 2023-04-10 18:08 | NUR ---
Pt has been pretty upset today due to family situation at home, is calmer now, no acute changes this shift. call light in reach.
[2023-04-10 19:18] VITALS: BP 124/68
--- NOTE | 2023-04-11 03:47 | NUR ---
1900: ASSUMED CARE OF PT, REPORT RECEIVED FROM DAY SHIFT RN. PT IS SITTING UP AT THE SIDE OF THE BED. A/O X4, IND IN THE ROOM. REQUESTING A SHOWER. TELL PLACED ON HOLD AND PT WAS ABLE TO SHOWER SELF. NEW DRESSING PLACED TO PIV POST SHOWER, PT TOLERATED WELL. MEDICATIONS PROVIDED WITH WATER. PT SLEPT OFF/ON THROUGH THE NIGHT. REPORTS THAT SHE IS GOING TO BE DISCHARGED TUESDAY MOR[facility]. SAFETY MEASURES TAKEN. NEEDS ADDRESSED.
[2023-04-11 04:17] VITALS: BP 109/60
[2023-04-11 08:01] VITALS: BP 119/64
[2023-04-11] MEDS ORDERED: VISBIOME 112.51 EACH PO (12:12)
[2023-04-11] MEDS ORDERED: CEPH500 PO (12:12)
--- NOTE | 2023-04-11 12:28 | NUR ---
PATIENT D/C'D TO HOME WITH FAMILY. RX MEDICATIONS FAXED TO [facility]. DC INSTRUCTIONS AND EDUCATIONS DISCUSSED WITH PATIENT AND COPY PROVIDED. PATIENT DENIES ANY FURTHER QUESTIONS OR CONCERNS.
== END 2023-04-11 12:20 | disposition home or self-care (01) | DRG 872 ==
LOC: ER 20:33 → MEDS 04-07 00:36
PROVIDERS: Emergency Medicine; Family Medicine; Internal Medicine; Student in an Organized Health Care Education/Training Program; ADMIT Internal Medicine
DX: A40.9 Streptococcal sepsis, unspecified (principal); L03.116 Cellulitis of left lower limb; N39.0 Urinary tract infection, site not specified; Z16.19 Resistance to other specified beta lactam antibiotics; F17.210 Nicotine dependence, cigarettes, uncomplicated; F15.10 Other stimulant abuse, uncomplicated; Z28.21 Immunization not carried out because of patient refusal
CPT/HCPCS: 36415; 80048; 80053; 81001; 83605; 83690; 83735; 84100; 85025; 85027; 87040; 87077; 87086; 87147; 87186; 93005; 93010; 96361; 96365; 96375; 99283-25; A9270; J0690; J0692; J0696; J1650; J1885; J3370; J7030; J7050

== ENCOUNTER 2024-10-12 21:33 | Emergency (ER) | payer OTHER ==
[~2024-10-12] VITALS: Ht 157.5 cm; Wt 63.5 kg
[~2024-10-12 21:33] MED LIST changes: +VISBIOME 112.51 EACH PO
[2024-10-12] MEDS ORDERED: Ondansetron 4 MG SoluTab SL ONE (22:00)
[2024-10-12] MEDS ORDERED: HYDROcodone 5-APAP 325 TAB PO ONE (22:00)
[2024-10-12] MEDS ORDERED: Ketorolac Tromethamine 15mg Vial IV ONE (23:15)
[2024-10-12] MEDS ORDERED: Propofol 10mg/ml 20 ml Vial (Procedural) IV SCH (23:20)
[2024-10-12] MEDS ORDERED: NS 1,000 ML IV SCH (23:20)
[2024-10-13] MEDS ORDERED: Midazolam HCl 1MG / ML 2ML Vial ONE (00:55)
[2024-10-13 02:25] VITALS: BP 152/80
== END 2024-10-13 03:46 | disposition home or self-care (01) ==
LOC: ER 21:33
DX: S82.851A Displaced trimalleolar fracture of right lower leg, initial encounter for closed fracture (principal); F17.200 Nicotine dependence, unspecified, uncomplicated; W01.0XXA Fall on same level from slipping, tripping and stumbling without subsequent striking against object, initial encounter
CPT/HCPCS: 73590; 73600; 73610; 73630; A9270; J1885; J2250; J2704; J7030

== ENCOUNTER 2024-10-15 21:35 | Inpatient (IN) | payer OTHER ==
[~2024-10-15] VITALS: Ht 157.5 cm; Wt 63.5 kg
[2024-10-15] MEDS ORDERED: NS 1,000 ML IV ONE (22:45)
[2024-10-15] MEDS ORDERED: Propofol 10mg/ml 20 ml Vial (Procedural) IV SCH (22:45)
[2024-10-15] MEDS ORDERED: Morphine Sulfate 4 MG/1 ML Injection IV ONE (23:30)
[2024-10-15] MEDS ORDERED: NS 1,000 ML IV SCH (23:40)
[2024-10-16] VITALS (16 sets, daily range): BP systolic 84–175; BP diastolic 51–94
[2024-10-16 00:54] LABS: Alanine Aminotransfer (ALT/SGP 20.0 U/L (12-78); Albumin, Blood 3.1 g/dL (3.4-5.0); Albumin/Globulin Ratio 0.9 (0.8-1.8); Anion Gap 7.0 mmol/L (3-11); Aspartate Aminotrans (AST/SGOT 21.0 U/L (12-37); Bilirubin, Total 0.8 mg/dL (0.1-1.0); Blood Urea Nitrogen 15.0 mg/dL (8-24); CO2, Blood 24.0 mmol/L (21-32); Calcium, Blood 8.2 mg/dL (8.5-10.1); Chloride, Blood 110.0 mmol/L (98-108); Creatinine, Blood 0.62 mg/dL (0.40-1.00); Globulin, Blood 3.4 g/dL (2.2-4.0); Glucose, Blood 101.0 mg/dL (70-99); Potassium, Blood 3.2 mmol/L (3.5-5.5); Sodium, Blood 138.0 mmol/L (136-145); Total Protein, Blood 6.5 g/dL (6.4-8.2)
[2024-10-16] MEDS ORDERED: FentaNYL Citrate 50 MCG/ML 2 ML Injection IV PRN ×3 (01:25→16:55)
[2024-10-16] MEDS ORDERED: HYDROmorphone HCl/Pf 1MG SYR IV PRN ×4 (01:25→16:55)
[2024-10-16 01:50] LABS: BASOPHILS ABSOLUTE AUTO 0.06 K/mm3 (0.00-0.23); BASOPHILS PERCENT AUTO 1 % (0-2); EOSINOPHILS ABSOLUTE AUTO 0.03 K/mm3 (0.00-0.68); EOSINOPHILS PERCENT AUTO 0 % (0-6); Hematocrit 36.3 % (33.0-51.0); Hemoglobin 11.9 g/dL (11.5-16.0); IMMATURE GRAN ABSOLUTE AUTO 0.05 K/mm3 (0.00-0.10); IMMATURE GRAN PERCENT AUTO 1 % (0-1); LYMPHOCYTES ABSOLUTE AUTO 1.27 K/mm3 (0.84-5.20); LYMPHOCYTES PERCENT AUTO 12 % (21-46); MONOCYTES ABSOLUTE AUTO 0.50 K/mm3 (0.16-1.47); MONOCYTES PERCENT AUTO 5 % (4-13); Mean Corpuscular HGB Conc 32.8 g/dL (31.5-36.5); Mean Corpuscular Volume 87 fL (80-100); NEUTROPHILS ABSOLUTE AUTO 9.10 K/mm3 (1.96-9.15); NEUTROPHILS PERCENT AUTO 83 % (41-73); NRBC ABSOLUTE 0.00 K/mm3 (0.00-0.02); NRBC Auto 0.0 /100 WBC (0.0-0.2); Platelet Count 294 K/mm3 (150-400); RDW Coefficient Variation 14.8 % (11.7-14.2); RDW Standard Deviation 48.1 fL (35.1-46.3)
--- NOTE | 2024-10-16 03:54 | NUR ---
SHIFT SUMMARY PATIENT IS ALERT AND ORIENTED. PATIENT HAS HAD NO ACUTE EVENTS THIS SHIFT. VITAL SIGNS REVIEWED. PATIENT IS AN ADMIT THIS SHIFT FOR WRIST FRACTURE. PATIENT HAS COMPLAINED OF PAIN THIS SHIFT. OBTAINED PAIN MEDS AND MEDICATED PER EMAR. PATIENT HAS HAD NO COMPLAINTS OF SOB, NAUSEA OR VOMITTING THIS SHIFT. BED IN LOCKED AND LOWEST POSITION. CALL LIGHT IN PLACE.
[2024-10-16 05:35] LABS: BASOPHILS ABSOLUTE AUTO 0.06 K/mm3 (0.00-0.23); BASOPHILS PERCENT AUTO 1 % (0-2); EOSINOPHILS ABSOLUTE AUTO 0.06 K/mm3 (0.00-0.68); EOSINOPHILS PERCENT AUTO 1 % (0-6); Hematocrit 34.7 % (33.0-51.0); Hemoglobin 11.3 g/dL (11.5-16.0); IMMATURE GRAN ABSOLUTE AUTO 0.02 K/mm3 (0.00-0.10); IMMATURE GRAN PERCENT AUTO 0 % (0-1); LYMPHOCYTES ABSOLUTE AUTO 1.92 K/mm3 (0.84-5.20); LYMPHOCYTES PERCENT AUTO 22 % (21-46); MONOCYTES ABSOLUTE AUTO 0.66 K/mm3 (0.16-1.47); MONOCYTES PERCENT AUTO 7 % (4-13); Mean Corpuscular HGB Conc 32.6 g/dL (31.5-36.5); Mean Corpuscular Volume 88 fL (80-100); NEUTROPHILS ABSOLUTE AUTO 6.22 K/mm3 (1.96-9.15); NEUTROPHILS PERCENT AUTO 70 % (41-73); NRBC ABSOLUTE 0.00 K/mm3 (0.00-0.02); NRBC Auto 0.0 /100 WBC (0.0-0.2); Platelet Count 310 K/mm3 (150-400); RDW Coefficient Variation 14.8 % (11.7-14.2); RDW Standard Deviation 48.1 fL (35.1-46.3)
[2024-10-16] MEDS ORDERED: CeFAZolin Sodium 2,000 MG in NS 100 ML IV SCH (09:45)
[2024-10-16] MEDS ORDERED: Tranexamic Acid 100 ML IV SCH (09:45)
[2024-10-16 11:10] LABS: Alanine Aminotransfer (ALT/SGP 23.0 U/L (12-78); Albumin, Blood 3.1 g/dL (3.4-5.0); Albumin/Globulin Ratio 1.0 (0.8-1.8); Anion Gap 12.0 mmol/L (3-11); Aspartate Aminotrans (AST/SGOT 24.0 U/L (12-37); Bilirubin, Total 0.9 mg/dL (0.1-1.0); Blood Urea Nitrogen 12.0 mg/dL (8-24); CO2, Blood 27.0 mmol/L (21-32); Calcium, Blood 8.4 mg/dL (8.5-10.1); Chloride, Blood 105.0 mmol/L (98-108); Creatinine, Blood 0.51 mg/dL (0.40-1.00); Globulin, Blood 3.2 g/dL (2.2-4.0); Glucose, Blood 103.0 mg/dL (70-99); Potassium, Blood 3.5 mmol/L (3.5-5.5); Sodium, Blood 140.0 mmol/L (136-145); Total Protein, Blood 6.3 g/dL (6.4-8.2)
[2024-10-16] MEDS ORDERED: Dexmedetomidine HCL 200 MCG / 2 ML ONE (11:14)
[2024-10-16] MEDS ORDERED: Ropivacaine 0.5% HCL/PF 5 MG/ML 30ML Vial ONE (11:14)
[2024-10-16] MEDS ORDERED: CeFAZolin Sodium 2,000 MG VIAL ONE (12:38)
--- NOTE | 2024-10-16 13:00 | NUR ---
WHEN ARRIVING TO [facility] FLOOR ROOM PT REQUESTS TO GET UP TO BEDSIDE COMMODE. PT ABLE TO TRANSFER WITH STAND BY ASSISTANCE TO COMMODE. ABLE TO URINATE IN COMMODE. PT THEN ABLE TO TRANSFER HERSELF TO [facility] FOR TRANSPORT. PT GIVEN WARM WET WASHCLOTHES TO WIPE FACE DOWN WHEN ARRIVING TO DAY SURGERY. History, Chart, Medications and Allergies reviewed before start of procedure. Pre-Op teaching done. Pt verbalizes understanding. WARM BLANKET PROVIDED. ALL BELONGINGS LEFT IN PT'S ROOM.
--- NOTE | 2024-10-16 13:24 | NUR ---
PT HAS 20G IV TO LEFT WRIST THAT FLUSHES WELL AND FLOWS TO GRAVITY.
[2024-10-16] MEDS ORDERED: EpiNEPhrine 1 MG/1 ML 1ML Vial ONE ×2 (13:33→16:45)
[2024-10-16] MEDS ORDERED: Dexamethasone Sod Phos 10 MG/ML 1ML VIAL ONE ×2 (13:33→16:11)
--- NOTE | 2024-10-16 14:32 | NUR ---
1430: Dr. Avina at bedside to perform preop peripheral nerve blocks. 1438: Timeout complete by RN. Premeds given by Dr. Avina. See anesthesia notes. 1444: Procedure start time. 1503: Procedure end time. Pulse ox/HR monitored and stable throughout procedure. Pt tolerated procedure well. See anesthesia notes for block time starts and ends.
--- NOTE | 2024-10-16 14:34 | NUR ---
PT UPDATED ON DELAY IN ROOM DUE TO PREVIOUS CASES RUNNING LONG. PT RATES HER PAIN AT 9/10 WITH NO NAUSEA AT THIS TIME. PT GIVEN 10MG OXYCONTIN AND 1000MG TYLENOL PO. SHE DENIES ANY FURTHER NEEDS AT THIS TIME.
[2024-10-16] MEDS ORDERED: Midazolam HCl 1MG / ML 2ML Vial ONE (14:37)
[2024-10-16] MEDS ORDERED: FentaNYL Citrate 50 MCG/ML 2 ML Injection ONE (16:09)
[2024-10-16] MEDS ORDERED: Ondansetron HCl 2 MG / ML 2ML Vial ONE (16:11)
[2024-10-16] MEDS ORDERED: Bupivacaine 0.5% HCl 5 MG/ML 30MLVIAL ONE (16:45)
[2024-10-16] MEDS ORDERED: Ondansetron HCl 2 MG / ML 2ML Vial IV PRN (16:45)
[2024-10-16] MEDS ORDERED: Phenylephrine HCl 100 MCG/ML-NS 10MLSYR (1MG/10ML) ONE (16:45)
[2024-10-16] MEDS ORDERED: Albuterol 2.5 MG/3 ML VIAL INH PRN (16:45)
[2024-10-16] MEDS ORDERED: HYDROmorphone HCl/Pf 1MG SYR ONE (17:32)
[2024-10-16] MEDS ORDERED: HYDROcodone 5-APAP 325 TAB PO PRN (17:40)
--- NOTE | 2024-10-16 17:59 | NUR ---
SHIFT SUMMARY NO ACUTE CHANGES, A/Ox4, ABLE TO MAKE NEEDS KNOWN AND USES CALL SYSTEM APPROPRIATELY. NPO STATUS FOR THIS RN IN PREPARATION FOR SURGERY. PT DOWN IN DAY SURGERY MAJORITY OF DAY. CURRENTLY IN DAY SURGERY AND HAS BEEN SINCE APPROX 1230. TREATED FOR PAIN PER EMAR.
--- NOTE | 2024-10-16 18:48 | NUR ---
PT RETURNED FROM PACU. PT IS AWAKE, WITHDRAWN BUT ABLE TO MAKE NEEDS KNOWN AND ANSWER QUESTIONS APPROPRIATELY. PT DENIES PAIN. VITALS STABLE. SATING 93% ON 2 L/MIN VIA NC. BED IN LOWEST POSITION AND CALL LIGHT WITHIN REACH, BED ALARM ON FOR PT SAFETY.
--- NOTE | 2024-10-16 22:33 | NUR ---
PT VERBALIZED FEELING HUNGRY, CALLED PHYSICIAN AND TALKED W/ DR ALEXANDER. PT ABLE TO EAT UNTIL BEING MADE NPO AT MIDNIGHT AGAIN TO PREPARE IF PT NEEDS FURTHER PROCEDURES IN THE AM.
[2024-10-17 03:38] VITALS: BP 117/68
--- NOTE | 2024-10-17 06:23 | NUR ---
SHIFT SUMMARY PT ALERT AND ORIENTED TIMES 3-4. PT ADMITTED FOR MULTIPLE FRACTURES OF RIGHT WRIST AND RIGHT ANKLE. PT IS COOPERATIVE WITH CARE. PT IS ON 2L O2 NASAL CANULA. PT TAKES MEDICATION WHOLE WITH WATER. PT IS ONE PERSON ASSIST TO BEDSIDE COMMODE, STAND AND PIVOT. PT IS COOPERATIVE WITH STAFF REGARDING CARE. CALL LIGHT WITHIN REACH, RAILS TIMES 2, BED IN LOW POSITION.
[2024-10-17 07:54] VITALS: BP 122/75
[2024-10-17] MEDS ORDERED: Enoxaparin 40 MG/0.4 ML SYR SC SCH (14:00)
--- NOTE | 2024-10-17 16:38 | NUR ---
SHIFT SUMMARY NO ACUTE CHANGES. A/Ox4, ABLE TO MAKE NEEDS KNOWN AND USING CALL SYSTEM APPROPRIATELY. TREATED FOR PAIN PER EMAR. GOOD ORAL INTAKE. SMALL BM TODAY. UP TO COMMODE WITH 1 PERSON STAND PIVOT. PHYSICAL THERAPY DID SET UP WALKER TO ACCOMODATE PT NON-WEIGHT BEARING STATUS ON R SIDE. MELITON WRAPS CLEAN AND INTAKE. PT CURRENTLY SLEEPING IN BED WITH BED IN LOWEST POSITION AND CALL LIGHT WITHIN REACH. PT ON RA AND SATING ABOVE 92% T/O DAY SHIFT.
[2024-10-17 19:59] VITALS: BP 109/63
--- NOTE | 2024-10-18 05:21 | NUR ---
SHIFT SUMMARY PT ALERT AND ORIENTED TIMES 3-4. PT ADMITTED FOR MULTIPLE FRACTURES OF RIGHT WRIST AND RIGHT ANKLE. PT IS COOPERATIVE WITH CARE. PT EXPERIENCING INCREASED PAIN NERVE BLOCK HAS STARTED TO GO AWAY. TAKES MEDICATION WHOLE WITH WATER. PT IS ONE PERSON ASSIST TO BEDSIDE COMMODE, STAND AND PIVOT. PT IS COOPERATIVE WITH STAFF REGARDING CARE. CALL LIGHT WITHIN REACH, RAILS TIMES 2, BED IN LOW POSITION.
[2024-10-18 05:31] LABS: Hematocrit 33.0 % (33.0-51.0); Hemoglobin 10.8 g/dL (11.5-16.0); Mean Corpuscular HGB Conc 32.7 g/dL (31.5-36.5); Mean Corpuscular Volume 87 fL (80-100); NRBC ABSOLUTE 0.00 K/mm3 (0.00-0.02); NRBC Auto 0.0 /100 WBC (0.0-0.2); Platelet Count 314 K/mm3 (150-400); RDW Coefficient Variation 15.1 % (11.7-14.2); RDW Standard Deviation 48.4 fL (35.1-46.3)
[2024-10-18 05:35] VITALS: BP 118/59
[2024-10-18 07:12] VITALS: BP 123/68
[2024-10-18] MEDS ORDERED: HYDROmorphone HCl/Pf 1MG SYR IV PRN (08:35)
[2024-10-18] MEDS ORDERED: Ergocalciferol 50000 Intn'l Units PO SCH (09:00)
[2024-10-18] MEDS ORDERED: HYDROcodone 10-APAP 325 TAB PO PRN (13:05)
[2024-10-18 15:58] VITALS: BP 146/74
--- NOTE | 2024-10-18 18:29 | NUR ---
SHIFT SUMMARY PT IS A/OX4. 1 PERSON ASSIST STAND PIVOT TO BSC, NON WEIGHT BEARING TO RLE. PT MEDICATED FOR PAIN THE THE RUE AND RLE WITH NORCO AND DILUADID THIS SHIFT PER MAR. PT REPORTS INCREASED PAIN THIS SHIFT COMPARED TO YESTERDAY. PT IS PLEASANT AND COOPERATIVE WITH CARE AND CALLS APPROPRIATELY USING THE CALL LIGHT.
[2024-10-18 20:29] VITALS: BP 150/79
[2024-10-19 04:15] VITALS: BP 139/72
[2024-10-19 04:50] LABS: Hematocrit 33.8 % (33.0-51.0); Hemoglobin 11.0 g/dL (11.5-16.0)
[2024-10-19 07:22] VITALS: BP 141/73
[2024-10-19] MEDS ORDERED: Colace100 MG PO (15:40)
[2024-10-19] MEDS ORDERED: HYDACE10B PO (15:41)
[2024-10-19] MEDS ORDERED: ERGO50000 PO (15:42)
[2024-10-19] MEDS ORDERED: ASPI81CH PO (15:42)
--- NOTE | 2024-10-19 16:15 | NUR ---
PT DISCHARGED TO [facility]. REPORT CALLED TO [facility] NURSE. ALL VALUABLES RETURNED AND SENT WITH THE PT.
== END 2024-10-19 16:19 | DRG 493 ==
LOC: ER 21:35 → MEDS 21:36 → SURS 21:36 → MEDS 10-16 00:55
PROVIDERS: Emergency Medicine; Internal Medicine; Orthopaedic Surgery; Podiatrist Foot & Ankle Surgery; Student in an Organized Health Care Education/Training Program; ADMIT Internal Medicine
PROC: 0PSH04Z Reposition Right Radius with Internal Fixation Device, Open Approach (ICD-10-PCS; 2024-10-16)
PROC: 0QSJ04Z Reposition Right Fibula with Internal Fixation Device, Open Approach (ICD-10-PCS; principal; 2024-10-16 14:00)
PROC: 0QSG04Z Reposition Right Tibia with Internal Fixation Device, Open Approach (ICD-10-PCS; 2024-10-16 14:00)
DX: S82.851A Displaced trimalleolar fracture of right lower leg, initial encounter for closed fracture (principal); S52.551A Other extraarticular fracture of lower end of right radius, initial encounter for closed fracture; S52.601A Unspecified fracture of lower end of right ulna, initial encounter for closed fracture; E55.9 Vitamin D deficiency, unspecified; W18.39XA Other fall on same level, initial encounter; F17.290 Nicotine dependence, other tobacco product, uncomplicated
CPT/HCPCS: 25605; 36415; 73100; 73110; 73600; 73610; 80053; 82306; 85014; 85018; 85025; 85027; 94762; 96374; 96376; 97110; 97116; 97161; 97530; 99285-25; A6253; A9270; C1713; G0378; J0165; J0690; J1100; J1171; J1650; J2250; J2371; J2405; J2704; J2795; J3010; J7030; J7120